=== PATIENT | male | born 1975 | race Hispanic/Latino ===

== ENCOUNTER 2021-04-27 06:55 | Inpatient (IN) | payer OTHER ==
[~2021-04-27] VITALS: Ht 172.7 cm; Wt 92.4 kg
[2021-04-27 10:00] LABS: APPEARANCE,URINE Clear (CLEAR); BILIRUBIN,URINE Negative (NEGATIVE); COLOR,URINE Yellow (YELLOW); GLUCOSE, URINE (UA) Negative (NEGATIVE); KETONES,URINE Negative (NEGATIVE); LEUKOCYTE ESTERASE ,URINE Negative (NEGATIVE); NITRATE,URINE Negative (NEGATIVE); OCCULT BLOOD,URINE Negative (NEGATIVE); PH,URINE 5.5 (5.0-8.0); PROTEIN,URINE Negative (NEGATIVE)
[2021-04-27 14:21] VITALS: BP 149/89
[2021-04-27] MEDS ORDERED: ZINC50TA15 PO (15:06)
[2021-04-27] MEDS ORDERED: TYLENOL ARTHRITIS PO (15:06)
[2021-04-27] MEDS ORDERED: CELE-84 PO (15:06)
[2021-04-30] VITALS (26 sets, daily range): BP systolic 116–162; BP diastolic 56–99
[2021-04-30] MEDS: CEFAZOLIN SODIUM 1 GM VIAL IVP SCH ×3 (06:00→16:18)
[2021-04-30] MEDS ORDERED: LACTATED RINGERS 1000ML 1,000 ML IV ONE (07:18)
[2021-04-30] MEDS ORDERED: CEFAZOLIN SODIUM 1 GM VIAL ONE (08:05)
[2021-04-30] MEDS ORDERED: TRANEXAMIC ACID 1000MG/10ML ONE ×2 (08:05→11:57)
[2021-04-30] MEDS ORDERED: MIDAZOLAM HCL 1 MG/ML 2ML VIAL ONE (08:11)
[2021-04-30] MEDS ORDERED: LIDOCAINE HCL-MPF 1% 5ML AMP IJ ONE (08:14)
[2021-04-30] MEDS ORDERED: FENTANYL CITRATE PF 50 MCG/1 ML 2ML VIAL ONE ×2 (08:14→09:05)
[2021-04-30] MEDS ORDERED: PROPOFOL 10 MG/ML 20ML VIAL IV ONE (08:14)
[2021-04-30] MEDS ORDERED: ROCURONIUM 10MG/1ML SYR 10 MG/ML ML ONE ×3 (08:14→10:00)
[2021-04-30] MEDS ORDERED: SUCCINYLCHOLINE CHLORIDE 20 MG/ML 10 ML VIAL ONE (08:14)
[2021-04-30] MEDS ORDERED: ROPIVACAINE 0.5% 5MG/ML 30ML IJ ONE ×2 (08:18→08:19)
[2021-04-30] MEDS ORDERED: NEOSTIGMINE 5MG/5ML SYR IV ONE (11:26)
[2021-04-30] MEDS ORDERED: GLYCOPYRROLATE 1 MG/5 ML SYRINGE ONE (11:26)
[2021-04-30] MEDS ORDERED: DiphenhydrAMINE HCL 50 MG/ML VIAL IVP PRN (11:30)
[2021-04-30] MEDS ORDERED: TRAMADOL HCL 50 MG TABLET PO PRN (11:30)
[2021-04-30] MEDS ORDERED: POTASSIUM CHLORIDE 20MEQ/100ML 100 ML IV PRN (11:30)
[2021-04-30] MEDS ORDERED: TEMAZEPAM 15 MG CAPSULE PO PRN (11:30)
[2021-04-30] MEDS ORDERED: CALCIUM CARB 500MG PO PRN (11:30)
[2021-04-30] MEDS: ACETAMINOPHEN 500 MG TABLET PO SCH ×2 (11:30→18:31)
[2021-04-30] MEDS ORDERED: KCL 20 MEQ ERTAB PO PRN (11:30)
[2021-04-30] MEDS ORDERED: ONDANSETRON 4MG INJ IVP PRN (11:30)
[2021-04-30] MEDS ORDERED: FERROUS FUMARATE 324 MG TABLET PO PRN (11:30)
[2021-04-30] MEDS ORDERED: OXYCODONE HCL 5 MG TAB PO PRN ×2 (11:30)
[2021-04-30] MEDS ORDERED: POTASSIUM CHLORIDE 10% ELIXIR 20 MEQ/15 ML UDCUP PO PRN (11:30)
[2021-04-30] MEDS ORDERED: LIDOCAINE HCL-MPF 1% 2ML VIAL IV PRN (11:30)
[2021-04-30] MEDS ORDERED: MEPERIDINE-PF 25 MG/ML SYG ONE ×3 (11:53→12:36)
[2021-04-30] MEDS ORDERED: METOCLOPRAMIDE 10 MG/2 ML VIAL ONE (12:37)
[2021-04-30] MEDS: KETOROLAC 15MG/ML VIAL (15MG/ML) IV PRN (12:55)
[2021-04-30] MEDS: 0.9%NACL 1000ML 1,000 ML IV SCH ×2 (13:05→22:30)
[2021-04-30] MEDS ORDERED: MAGN500C15 PO (14:26)
[2021-04-30] MEDS ORDERED: GARL1000 PO (14:26)
[2021-04-30] MEDS ORDERED: ASCO500T20 PO (14:26)
[2021-04-30] MEDS: HYDROMORPHONE PCA 10 MG/50 ML 50 ML IV PRN (15:16)
[2021-04-30] MEDS: ASPIRIN 81MG CHEW TAB PO SCH (22:30)
[2021-04-30] MEDS: CELECOXIB 200 MG CAP PO SCH (22:31)
[2021-04-30] MEDS: PREGABALIN 25 MG CAP PO SCH (22:31)
[2021-04-30] MEDS: FAMOTIDINE 20MG TAB PO SCH (22:31)
[2021-05-01] MEDS: CEFAZOLIN SODIUM 1 GM VIAL IVP SCH (01:27)
[2021-05-01 04:07] VITALS: BP 122/84
[2021-05-01] MEDS: ACETAMINOPHEN 500 MG TABLET PO SCH ×3 (04:31→23:22)
[2021-05-01] MEDS: KETOROLAC 15MG/ML VIAL (15MG/ML) IV PRN (04:34)
[2021-05-01 04:56] LABS: HEMATOCRIT 37.8 % (42-54); MEAN CORPUSCULAR HEMOGLOBIN 32.1 pg (27.0-33.0); MEAN CORPUSCULAR HGB CONC 34.1 g/dL (32.0-36.0); RED BLOOD CELL COUNT(AUTO) 4.02 MIL/uL (4.50-6.20); RED CELL DISTRIBUTION WIDTH 13.9 % (11.0-15.5)
[2021-05-01 05:39] LABS: POTASSIUM 4.2 mmol/L (3.5-5.1)
[2021-05-01 07:30] VITALS: BP 116/73
[2021-05-01] MEDS: 0.9%NACL 1000ML 1,000 ML IV SCH (07:56)
[2021-05-01] MEDS: (Zinc Gluconate (Zinc) 50 MG) PO SCH (09:00)
[2021-05-01] MEDS: TAMSULOSIN HCL 0.4 MG CAP.ER.24H PO SCH ×2 (09:00→09:40)
[2021-05-01] MEDS ORDERED: CELECOXIB 200 MG CAP PO SCH (09:00)
[2021-05-01] MEDS: PREGABALIN 25 MG CAP PO SCH ×2 (09:39→23:20)
[2021-05-01] MEDS: POLYETHYLENE GLYCOL 3350 17 GM POWD.PACK PO SCH (09:39)
[2021-05-01] MEDS: CELECOXIB 200 MG CAP PO SCH ×2 (09:40→23:20)
[2021-05-01] MEDS: FAMOTIDINE 20MG TAB PO SCH ×2 (09:40→23:22)
[2021-05-01] MEDS: ASPIRIN 81MG CHEW TAB PO SCH ×2 (09:40→23:20)
[2021-05-01 11:00] VITALS: BP 116/76
[2021-05-01 16:00] VITALS: BP 131/85
[2021-05-01] MEDS: HYDROMORPHONE PCA 10 MG/50 ML 50 ML IV PRN (18:46)
[2021-05-01 20:13] VITALS: BP 121/82
[2021-05-01 23:48] VITALS: BP 125/84
[2021-05-02 04:11] VITALS: BP 121/79
[2021-05-02] MEDS: ACETAMINOPHEN 500 MG TABLET PO SCH ×3 (04:28→17:13)
[2021-05-02 05:16] LABS: HEMATOCRIT 36.1 % (42-54); MEAN CORPUSCULAR HEMOGLOBIN 31.1 pg (27.0-33.0); MEAN CORPUSCULAR HGB CONC 33.2 g/dL (32.0-36.0); MEAN CORPUSCULAR VOLUME 93.5 fL (79-99); RED BLOOD CELL COUNT(AUTO) 3.86 MIL/uL (4.50-6.20); RED CELL DISTRIBUTION WIDTH 13.6 % (11.0-15.5); WHITE BLOOD COUNT (AUTO) 11.5 K/uL (4.8-10.8)
[2021-05-02 07:30] VITALS: BP 119/82
[2021-05-02] MEDS: POLYETHYLENE GLYCOL 3350 17 GM POWD.PACK PO SCH (08:44)
[2021-05-02] MEDS: CELECOXIB 200 MG CAP PO SCH (08:45)
[2021-05-02] MEDS: TAMSULOSIN HCL 0.4 MG CAP.ER.24H PO SCH (08:45)
[2021-05-02] MEDS: PREGABALIN 25 MG CAP PO SCH (08:45)
[2021-05-02] MEDS: FAMOTIDINE 20MG TAB PO SCH (08:45)
[2021-05-02] MEDS: ASPIRIN 81MG CHEW TAB PO SCH (08:45)
[2021-05-02] MEDS: (Zinc Gluconate (Zinc) 50 MG) PO SCH (09:00)
[2021-05-02 11:00] VITALS: BP 128/87
[2021-05-02 16:00] VITALS: BP 121/67
[2021-05-02] MEDS ORDERED: ASPI-1005 PO (16:42)
[2021-05-02] MEDS ORDERED: HYDR-4060 PO (16:42)
[2021-05-03] MEDS ORDERED: BISACODYL 10 MG SUPP.RECT RC PRN (11:30)
== END 2021-05-02 19:20 | disposition home health service (06) | DRG 470 ==
LOC: DAHIP 04-30 06:21 → EDSTATUS 04-30 09:00 → 3AH 04-30 12:45
PROVIDERS: ADMIT Orthopaedic Surgery; ATTEND Orthopaedic Surgery
PROC: 0SRB03Z Replacement of Left Hip Joint with Ceramic Synthetic Substitute, Open Approach (ICD-10-PCS; principal; 2021-04-30 08:35)
DX: M16.12 Unilateral primary osteoarthritis, left hip (principal); M87.9 Osteonecrosis, unspecified; M21.70 Unequal limb length (acquired), unspecified site; R26.89 Other abnormalities of gait and mobility; Z20.822 Contact with and (suspected) exposure to COVID-19; D64.9 Anemia, unspecified; G89.29 Other chronic pain
CPT/HCPCS: 36415; 73503; 80048; 81003; 85027; 87088; 87635; 87641; 97039; G0378; J0330; J0690; J1170; J1885; J2175; J2250; J2405; J2704; J2710; J2765; J2795; J3010; J3490; J7030; J7120